=== PATIENT | male | born 1940 | race Asian ===

== ENCOUNTER 2019-03-15 09:55 | Emergency (ER) | payer OTHER ==
[~2019-03-15] VITALS: Ht 167.6 cm; Wt 60.1 kg
[2019-03-15 10:07] VITALS: Ht 167.6 cm; Wt 60.1 kg
[2019-03-15 12:08] LABS: microscopic required? YES; urine erythrocyte NEGATIVE (NEGATIVE)
[2019-03-15 13:04] VITALS: BP 131/65
== END 2019-03-15 13:04 | disposition home or self-care (01) ==
LOC: ED 09:55
PROVIDERS: Emergency Medicine
DX: N39.0 Urinary tract infection, site not specified (principal)